=== PATIENT | female | born 1945 | race Caucasian/White ===

== ENCOUNTER → 2018-11-13 | Outpatient (CLI) | payer MEDICARE ==
--- NOTE | 2018-11-13 17:25 | KCIC ---
Bilateral digital screening mammograms with 3-D tomosynthesis: Reason for examination: Routine screening. New baseline. Bilateral mammograms in CC and oblique projections were obtained with 2-D imaging and 3-D tomosynthesis imaging on a Siemens Inspiration unit and reviewed on the workstation. Interpretation was made with the benefit of CAD. The skin and nipples show no abnormalities. No abnormal axillary lymph nodes are seen. The breast parenchyma shows scattered fatty and fibroglandular density. (Breast density: Category B.) There appears to be a small 6.3 mm circumscribed nodule in the 10:00 position of the left breast approximately 6.5 cm from the nipple. Recommend further evaluation with ultrasound. There are no other dominant masses, suspicious calcifications or architectural distortion. Benign appearing calcifications are present. Impression: Small 6.3 mm nodule at the 10:00 B position of the left breast. Recommend further evaluation with ultrasound. BI-RADS Category 0: Incomplete. Needs additional imaging evaluation. "Our facility is accredited by the [employer] Mammography [employer]." This patient's information has been entered into a reminder system for the patient to be notified with the results of her examination and a target date for the next mammogram. Electronically signed by: Janel Jiménez MD (11/13/2018 5:22 PM) [id number]
== END | disposition home or self-care (01) ==
LOC: KCIC MAMMO 14:37
PROVIDERS: ATTEND Family Medicine
DX: Z12.31 Encounter for screening mammogram for malignant neoplasm of breast (principal); N63.22 Unspecified lump in the left breast, upper inner quadrant
CPT/HCPCS: 77063; 77067

== ENCOUNTER → 2018-11-19 | Outpatient (CLI) | payer MEDICARE ==
--- NOTE | 2018-11-19 14:03 | KCIC ---
Left breast ultrasound: Reason for examination: Nodular density on screening mammogram. Ultrasound examination was performed in the area of mammographic concern and in the left axilla. In the 9:00 position, there is some focal echogenicity with shadowing consistent with calcification seen mammographically at the 9:00 position. In the 8:00 position 6 cm from the nipple and corresponding to the area of mammographic concern, there is a circumscribed hypoechoic fibrocystic lesion measuring 5.3 mm in size. No other cystic or solid lesions are seen. No abnormal appearing lymph nodes are seen in the left axilla. IMPRESSION: Small 5.3 mm fibrocystic lesion at the 8:00 position 6 cm from the nipple corresponding to the area of mammographic concern. No other focal abnormality seen. Recommend 6 month follow-up ultrasound. BI-RADS Category 3: Probably Benign. "Our facility is accredited by the [employer] Mammography [employer]." This patient's information has been entered into a reminder system for the patient to be notified with the results of her examination and a target date for the next mammogram. Electronically signed by: Janel Jiménez MD (11/19/2018 1:59 PM) [id number]
--- NOTE | 2019-01-19 17:22 | KCIC ---
7 view lumbar spine series including flexion and extension lateral views Clinical indications: Lumbar pain. History of several recent falls. FINDINGS: No compression fracture of the lumbar spine is evident. No abnormal movement is seen between flexion and extension. No anterolisthesis is seen. No spondylolysis is evident. There is moderate degenerative disc space narrowing and mild degenerative endplate spurring at L4-5 and L5-S1. Degenerative facet arthropathy is seen at L3-4 through L5-S1. The transverse processes are intact. IMPRESSION: Degenerative lumbar spondylosis at L4-5 and L5-S1. No acute compression fracture of the lumbar spine. Electronically signed by: Caleb Agosto MD (01/19/2019 5:20 PM) [id number]
--- NOTE | 2019-01-19 17:25 | KCIC ---
Three-view thoracic spine series Clinical indications: Thoracic back pain. History of several recent falls. COMPARISON: None available. FINDINGS: There is a mild compression fracture of T12. This mainly involves the superior endplate. No discitis or lytic process is evident. Mild scoliotic curvature is seen. IMPRESSION: Mild compression fracture of T12. Electronically signed by: Caleb Agosto MD (01/19/2019 5:22 PM) [id number]
== END | disposition home or self-care (01) ==
LOC: KCIC US 12:51
PROVIDERS: ATTEND Family Medicine
DX: N64.89 Other specified disorders of breast (principal)
CPT/HCPCS: 76641

== ENCOUNTER → 2019-08-05 | Outpatient (CLI) | payer MEDICARE ==
--- NOTE | 2019-08-05 15:50 | KCIC ---
Left breast ultrasound: Reason for examination: Follow-up nodules. Comparison is made to previous study dated 11/11/2018 and mammographic exam dated 11/13/2018. Ultrasound examination of the right breast and axilla was performed. There continues to be 5.2 mm fibrocystic lesion at the 8:00 position 6 cm from the nipple which is unchanged. There is a calcified lesion at the 9:00 position 9 cm from the nipple measuring 4.9 mm in greatest dimension which is unchanged. No new cystic or solid nodules are seen. No abnormal appearing lymph nodes are seen in the left axilla. IMPRESSION: No change in the fibrocystic lesion at the 8:00 position. Recommend reevaluation with left breast ultrasound at the time of bilateral mammograms for a 1 year follow-up for stability. BI-RADS Category 3: Probably Benign. "Our facility is accredited by the [employer] Mammography [employer]." This patient's information has been entered into a reminder system for the patient to be notified with the results of her examination and a target date for the next mammogram. Electronically signed by: Janel Jiménez MD (08/05/2019 3:47 PM) [id number]
== END | disposition home or self-care (01) ==
LOC: KCIC US 12:47
PROVIDERS: ATTEND Family Medicine
DX: N64.89 Other specified disorders of breast (principal)
CPT/HCPCS: 76641

== ENCOUNTER → 2019-11-26 | Outpatient (CLI) | payer MEDICARE ==
--- NOTE | 2019-11-26 11:48 | KCIC ---
Bilateral diagnostic digital mammograms with 3-D tomosynthesis: Reason for examination: Follow-up nodules. Comparison is made to previous study dated 11/13/2018. Bilateral mammograms in CC and oblique projections were obtained with 2-D imaging and 3-D tomosynthesis imaging on a Siemens Inspiration unit and reviewed on the workstation. Interpretation was made with the benefit of CAD. The skin and nipples show no abnormalities. No abnormal axillary lymph nodes are seen. The breast parenchyma shows scattered fatty and fibroglandular density. (Breast density: Category B.) There continues be a small nodular density at the 8:00 B position of the left breast. There is also a small calcifying nodule at the 9:00 B position of the left breast. There is a small nodular parenchymal density at the 10:00 B position of the right breast which is stable. There are no other new dominant masses, suspicious calcifications or architectural distortion. Benign calcifications are present. Impression: No change in the nodularity seen in either breast. Ultrasound to follow. BI-RADS Category 0: Incomplete. Needs additional imaging evaluation. Bilateral breast ultrasound: Comparison is made to previous left breast ultrasound dated 08/05/2019. Bilateral breast ultrasound including the retroareolar and axillary regions of both breasts was performed. In the right breast at the 10:00 position 5 cm from the nipple, there is a small 4 mm hypoechoic fibrocystic lesion. No other cystic or solid nodules are seen. No abnormal appearing lymph nodes are seen in the right axilla. In the left breast at the 8:00 position 6 cm from the nipple, there continues to be 6.5 hypoechoic fibrocystic lesion which is stable. There is also a calcifying nodule consistent with a degenerating fibroadenoma at the 9:00 position 9 cm from the nipple which is stable. No suspicious lesions are seen. No abnormal appearing lymph nodes are seen in the axilla. IMPRESSION: Benign-appearing fibrocystic lesions bilaterally. Small calcifying nodule probably representing a degenerating fibroadenoma at the 9:00 position of the left breast which is stable. No suspicious abnormalities are seen. Recommend routine mammographic follow-up. BI-RADS Category 2: Benign. "Our facility is accredited by the [employer] Mammography [employer]." This patient's information has been entered into a reminder system for the patient to be notified with the results of her examination and a target date for the next mammogram. Electronically signed by: Janel Jiménez MD (11/26/2019 11:45 AM) [id number]
== END | disposition home or self-care (01) ==
LOC: KCIC MAMMO 09:51
PROVIDERS: ATTEND Family Medicine
DX: N63.22 Unspecified lump in the left breast, upper inner quadrant (principal); N64.89 Other specified disorders of breast
CPT/HCPCS: 76641; 77066; G0279; 77062